=== PATIENT | male | born 1985 | race Caucasian/White ===

== ENCOUNTER 2017-03-21 00:04 | Emergency (ER) | payer SELFPAY ==
[2017-03-21 00:20] VITALS: TEMP 98.1; BMI 24.3
--- NOTE | 2017-03-21 01:59 | PDOC ---
History of Present Illness - General Chief Complaint: Alcohol intoxication Stated Complaint: INTOX Time Seen by Provider: 03/21/17 00:18 Past History - Past Medical History Allergies/Adverse Reactions: Allergies Allergy/AdvReac Type Severity Reaction Status Date / Time No Allergy Information Allergy Verified 03/21/17 00:18 Available Home Medications: Ambulatory Orders Unobtainable [Unobtainable] 03/21/17 - Suicide/Smoking/Psychosocial Hx Smoking History: Unknown if ever smoked Have you smoked in the past 12 months: No Information on smoking cessation initiated: No Hx Alcohol Use: Yes Drug/Substance Use Hx: No (unknown) Review of Systems - Review of Systems Able to Perform ROS?: No (pt is wasted drunk) *Physical Exam - Vital Signs Last Vital Signs Temp Pulse Resp BP Pulse Ox 98.1 F 80 20 96/65 94 L 03/21/17 00:18 03/21/17 00:18 03/21/17 00:18 03/21/17 00:18 03/21/17 00:18 - Physical Exam General Appearance: Yes: Disheveled, Alcohol on Breath. No: Apparent Distress, Mild Distress, Moderate Distress, Severe Distress HEENT: positive: EOMI, RON, Pharynx Normal Respiratory/Chest: positive: Lungs Clear, Normal Breath Sounds. negative: Chest Tender Cardiovascular: positive: Regular Rhythm, S1, S2, Tachycardia Gastrointestinal/Abdominal: positive: Flat, Soft. negative: Tender Male Genitalia: positive: normal genitalia (pt walking around naked) Musculoskeletal: positive: Normal Inspection. negative: CVA Tenderness Extremity: positive: Normal Capillary Refill, Normal Inspection, Normal Range of Motion Integumentary: positive: Normal Color, Dry, Warm Neurologic: positive: Fully Oriented (pt is drunk), Alert, Normal Response, Motor Strength 5/5 ED Treatment Course - LABORATORY CBC & Chemistry Diagram: 03/21/17 03:30 03/21/17 03:30 Medical Decision Making - Medical Decision Making 03/21/17 03:07 Pt seen on arrival; he comes with alcohol intoxication. Sleeping comfortably. 03/21/17 03:37 Pt is awake and unsteady gait. Vehemently refusing labs; wants to go home. He is still intox and will be held here until he daniela up more. Pt refusing to answer questions. When security was called, he got back in his stretcher. 12/16/17 04:10 Alcohol level is 312; the blood test was drawn at 4am. He will be sober earliest at 10am. He will be signed out to the day docs. *DC/Admit/Observation/Transfer Diagnosis at time of Disposition: Alcohol intoxication - Discharge Dispostion Disposition: HOME Condition at time of disposition: Stable - Referrals Referrals: Can Farrell MD [Staff Physician] - - Patient Instructions Printed Discharge Instructions: DI for Alcohol Abuse Additional Instructions: Follow-up with the primary care docotr (Bud) within 2-3 days. Return to the emergency department if you have any new, worsening or concerning symptoms. - Post Discharge Activity
[2017-03-21 03:40] LABS: BASOPHIL 0.7 % (0-2.0); EOSINOPHIL 0.9 % (0-4.5); MCHC 33.3 g/dl (32.0-35.9); MEAN CELL VOLUME 96.1 fl (80-96); MEAN PLT VOLUME 9.6 fl (7.5-11.1); NEUTROPHILS 59.1 % (42.8-82.8); PLATELET COUNT 238 K/MM3 (134-434); RDW 12.8 % (11.9-15.9); WHITE BLOOD COUNT 10.4 K/mm3 (4.0-10.0)
[2017-03-21 04:05] LABS: ALBUMIN 4.3 g/dl (3.4-5.0); ANION GAP 12 (8-16); BILIRUBIN,TOTAL 0.3 mg/dL (0.2-1.0); CALCIUM 8.6 mg/dL (8.5-10.1); CO2 22 mmol/L (21-32); CREATININE 0.6 mg/dL (0.7-1.3); GLUCOSE,RANDOM 88 mg/dL (74-106); SGPT/ALT 23 U/L (12-78); TOT PROT 7.4 g/dl (6.4-8.2)
[2017-03-21 04:07] LABS: ALK PHOS 82 U/L (45-117)
[2017-03-21 04:08] LABS: SGOT/AST 19 U/L (15-37)
[2017-03-21 06:26] VITALS: BP 106/56; PULSE 82
--- NOTE | 2017-03-21 08:27 | PDOC ---
*Physical Exam - Vital Signs Last Vital Signs Temp Pulse Resp BP Pulse Ox 98.1 F 82 20 106/56 100 03/21/17 00:18 03/21/17 06:25 03/21/17 06:25 03/21/17 06:25 03/21/17 06:25 ED Treatment Course - LABORATORY CBC & Chemistry Diagram: 03/21/17 03:30 03/21/17 03:30 - ADDITIONAL ORDERS Additional order review: Laboratory Results 03/21/17 03/21/17 03:30 03:30 Sodium 143 Potassium 4.3 Chloride 109 H Carbon Dioxide 22 Anion Gap 12 BUN 5 L Creatinine 0.6 L Creat Clearance w eGFR > 60 Random Glucose 88 Calcium 8.6 Total Bilirubin 0.3 AST 19 ALT 23 Alkaline Phosphatase 82 Total Protein 7.4 Albumin 4.3 Alcohol, Quantitative 316.2 H* 03/21/17 03:30 RBC 5.10 MCV 96.1 H MCHC 33.3 RDW 12.8 MPV 9.6 Neutrophils % 59.1 Lymphocytes % 35.2 Monocytes % 4.1 Eosinophils % 0.9 Basophils % 0.7 Medical Decision Making - Medical Decision Making 03/21/17 08:25 Patient signed out to me by overnight attending Dr. Galvez. Patient presented to the ED with presumed alcohol intoxication. On evaluation, this morning the patient is awake and alert and states that he does not know how he got here. He remembers drinking alcohol, but he reports that he drinks alcohol often and this has never happened to him in the past. He states that he last remembers taking care of his sick cat in his apartment. He denies any complaints currently , denies headache, pain anywhere, focal weakness or numbness, chest pain or shortness of breath, abdominal pain. He reports that he is annoyed that he does not know how he got here but would like to go home to take care of his cat. I asked the patient to ambulate, however he is currently refusing to walk. Will reevaluate shortly. 03/21/17 09:10 Patient currently ambulating in the ED with a steady gait. He requests discharge home, has no medical complaints. Exam with no evidence of trauma. He appears clinically sober. Will have nurse recheck vitals and discharge patient. 03/21/17 09:47 Patient refusing that we recheck his vitals. 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 I discussed the patient's lab results with him and told him that his alcohol level was certainly high enough to cause him to black out, but the remainder of his labs were within normal limits. He states he feels like something has been wrong with him for months and he wants to know if he has a tumor. On repeat exam: GENERAL: Awake, alert, and fully oriented, in no acute distress HEAD: No signs of trauma EYES: PERRLA, EOMI, sclera anicteric, conjunctiva clear ENT: Auricles normal inspection, hearing grossly normal, nares patent, oropharynx clear without exudates. Moist mucosa NECK: Normal ROM, supple, no lymphadenopathy, JVD, or masses LUNGS: Breath sounds equal, clear to auscultation bilaterally. No wheezes, and no crackles HEART: Regular rate and rhythm, normal S1 and S2, no murmurs, rubs or gallops ABDOMEN: Soft, nontender, normoactive bowel sounds. No guarding, no rebound. No masses EXTREMITIES: Normal range of motion, no edema. No clubbing or cyanosis. No cords, erythema, or tenderness NEUROLOGICAL: Normal speech, cranial nerves intact, negative pronator drift, 5/ 5 strength in all 4 extremities, normal sensation to light touch in all 4 extremities, normal cerebellar exam, normal gait, normal reflexes and tone SKIN: Warm, Dry, normal turgor, no rashes or lesions noted. The patient is neurologically intact and clinically sober. I discussed that he is currently neurologically intact and although we cannot rule out a tumor, there is no urgent indication for this workup in the emergency department. We have provided the patient with a referral to the walk in clinic to see Dr. Farrell. The patient agrees with the plan and requests discharge. I discussed the physical exam findings, ancillary test results and final diagnoses with the patient. I answered all of the patient's questions. The patient was satisfied with the care received and felt comfortable with the discharge plan and treatment plan. The patient will call their primary care physician within 24 hours to arrange follow-up and will return to the Emergency Department with any new, persistent or worsening symptoms. *DC/Admit/Observation/Transfer Diagnosis at time of Disposition: Alcohol intoxication - Discharge Dispostion Disposition: HOME Condition at time of disposition: Stable Admit: No - Referrals Referrals: Can Farrell MD [Staff Physician] - - Patient Instructions Printed Discharge Instructions: DI for Alcohol Abuse Additional Instructions: Follow-up with the primary care docotr (Bud) within 2-3 days. Return to the emergency department if you have any new, worsening or concerning symptoms. - Post Discharge Activity - Attestations Physician Attestion: 03/21/17 09:12 I, Dr. Christian Giraldo MD, attest that this document has been prepared under my direction and personally reviewed by me in its entirety. I further attest, that it accurately reflects all work, treatment, procedures and medical decision -making performed by me.
[2017-03-21 08:32] LABS: URINE MARIJUANA THC NEGATIVE ng/ml (CUTOFF=50)
== END 2017-03-21 09:21 | disposition home or self-care (01) ==
LOC: EDBD 00:04 → JER 00:04
DX: F10.120 Alcohol abuse with intoxication, uncomplicated (principal); Y90.8 Blood alcohol level of 240 mg/100 ml or more
CPT/HCPCS: 36415; 80053; 80307; 85025; 99283-25